=== PATIENT | female | born 1950 | race Caucasian/White ===

== ENCOUNTER → 2016-11-03 | Outpatient (CLI) | payer MEDICARE ==
--- NOTE | 2016-11-03 17:53 | REP ---
Bilateral digital screening mammogram: 11/03/2016 Comparison: 06/04/2015, 08/10/2013, 07/24/2012. Clinical history: Screening examination. She has no current complaint, personal history of breast cancer, but does have a family history of maternal breast cancer. There is a moderate amount of residual fibroglandular tissue remaining which may reduce the sensitivity of mammography. In the right CC view centrally there is an area of subtle increased tissue asymmetry and an increasing small dense nodular appearance centrally and in the inner half of the right breast respectively. It is difficult to clearly define these on the MLO projection. I suspect the more central area of tissue asymmetry is in the upper half of the breast. There are some scattered arterial calcifications in the breast, but no dominant masses, suspicious clusters of microcalcification, other areas of architectural distortion or secondary signs of malignancy. Some skin keratoses are evident. Fat replaced axillary nodes are seen. Impression: BIRADS ACR category 0, incomplete, additional imaging required. The patient should return for spot magnified CC and ML views of the right breast with additional images to be at the discretion of the reviewing radiologist. Ultrasound should be scheduled. There are no other new or significant findings. This mammogram was interpreted with the aid of an FDA-approved computer-aided detection system. The patient states she/he had a clinical breast exam in November 2016. The patient letter being requested is M0. BI-RADS/ACR category 0 mammogram. Incomplete. Additional imaging and/or prior images are needed before a final assessment can be assigned.
== END ==
LOC: M WHC 10:37
PROVIDERS: ATTEND Nurse Practitioner Family
DX: Z01.419 Encounter for gynecological examination (general) (routine) without abnormal findings (principal); Z12.31 Encounter for screening mammogram for malignant neoplasm of breast; R92.8 Other abnormal and inconclusive findings on diagnostic imaging of breast; Z12.12 Encounter for screening for malignant neoplasm of rectum; Z80.3 Family history of malignant neoplasm of breast
CPT/HCPCS: 82270; G0101; G0202

== ENCOUNTER → 2016-11-10 | Outpatient (CLI) | payer MEDICARE ==
--- NOTE | 2016-11-10 12:03 | REP ---
DIAGNOSTIC MAMMOGRAM RIGHT BREAST: Diagnostic mammogram right breast performed. Multiple spot compression views are obtained to evaluate opacities seen on recent mammogram of 11/03/2016. Today's spot compression views show that the densities compress out to an unchanged appearance compared to several prior exams. No persistent suspicious nodule or architectural distortion is seen. IMPRESSION: ACR 2 benign. No persistent nodule or architectural distortion on today's spot compression views of the right breast. Recommend followup mammogram in 1 year. BI-RADS/ACR category 2 mammogram. Benign finding(s). Routine annual screening mammography (for women over age 40). This mammogram was interpreted with the aid of an FDA-approved computer-aided detection system. A. Negative x-ray reports should not delay biopsy if a dominant or clinically suspicious mass is present. B. Four to eight percent of cancers are not identified by x-ray. C. Adenosis and dense breasts may obscure an underlying neoplasm. The patient letter being requested is M1. Signed by Oli Baez MD 11/10/2016 04:56 P
== END ==
LOC: M RAD 11:11
PROVIDERS: ATTEND Nurse Practitioner Family
DX: R92.2 Inconclusive mammogram (principal)

== ENCOUNTER → 2017-11-11 | Outpatient (CLI) | payer MEDICARE | LOC: M WHC 10:34 | DX: Z12.31 Encounter for screening mammogram for malignant neoplasm of breast (principal); Z78.0 Asymptomatic menopausal state; N95.8 Other specified menopausal and perimenopausal disorders; Z80.3 Family history of malignant neoplasm of breast; Z12.4 Encounter for screening for malignant neoplasm of cervix; Z12.12 Encounter for screening for malignant neoplasm of rectum | CPT/HCPCS: 77067; G0123 ==

== ENCOUNTER → 2017-11-11 | Outpatient (REF) | payer MEDICARE | LOC: M SFHCWAGY 11:11 | DX: Z12.4 Encounter for screening for malignant neoplasm of cervix (principal); N95.8 Other specified menopausal and perimenopausal disorders ==

== ENCOUNTER → 2018-12-07 | Outpatient (CLI) | payer MEDICARE ==
--- NOTE | 2018-12-07 12:54 | REP ---
BILATERAL MAMMOGRAM WITH 3D TOMOSYNTHESIS: Family history of breast cancer in mother over age 50 and sister at age 64. [facility] lifetime risk of breast cancer 10.4%. Comparison mammogram 11/11/2017 as well as other prior exams. Mild heterogeneous fibroglandular tissue is again seen bilaterally. There is no change on the right. On the left an oval nodular opacity in the region of 11 o'clock, mid to posterior aspect of the left breast, has slightly increased in size since prior study measuring 6 mm in maximum diameter. Another smaller nodular density more inferiorly and medially, and slightly more posteriorly, measures about 5 mm. Otherwise no new mass or clustered microcalcifications are seen bilaterally. IMPRESSION: BIRADS 0: BI-RADS/ACR category 0 mammogram, Incomplete: Need additional imaging evaluation and/or prior mammograms for comparison. Two subcentimeter nodules in the left breast, one at 11 o'clock and another more medially and inferiorly, more prominent than on prior study. Recommend spot compression views and ultrasound to further evaluate. This mammogram was interpreted with the aid of an FDA-approved computer-aided detection system. The patient states he/she had a clinical breast exam in 12/2018. The patient letter being requested is M0.
== END ==
LOC: M WHC 10:53
PROVIDERS: ATTEND Nurse Practitioner Family
DX: Z12.31 Encounter for screening mammogram for malignant neoplasm of breast (principal); N63.22 Unspecified lump in the left breast, upper inner quadrant; N63.20 Unspecified lump in the left breast, unspecified quadrant

== ENCOUNTER → 2018-12-13 | Outpatient (CLI) | payer MEDICARE ==
--- NOTE | 2018-12-13 14:46 | REP ---
DIAGNOSTIC MAMMOGRAM LEFT BREAST WITH LEFT BREAST ULTRASOUND: Multiple spot compression views of the left breast performed and correlated with a recent mammogram of 12/07/2018, and compared to other prior exams. Spot compression views confirm the presence of a well-circumscribed round nodule medially in the left breast at about the 9 -o'clock position, measuring 4-5 mm in diameter. There is also an oval well circumscribed nodule at about the 11-o'clock position with a maximum diameter 5-6 mm. Real-time sonographic evaluation of the 9-o'clock and 11-o'clock regions of the left breast performed. There are two cysts seen corresponding to the two mammographic subcentimeter nodules. At 9-o'clock, there is a 3 mm cyst and at 11-o'clock, there is an oval cyst measuring 5.3 x 4 mm. The findings are benign. IMPRESSION: BIRADS 2: BI-RADS/ACR category 2 mammogram. Benign Findings. Well circumscribed subcentimeter nodule at 9-o'clock and 11-o'clock positions confirmed by mammographic spot images, correspond to benign cysts by ultrasound. ACR2 benign. Recommend followup mammogram in 1 year. Patient letter requested is M1. Electronically Signed by Oli Baez MD 12/14/2018 09:42 A
== END ==
LOC: M RAD 12:24
PROVIDERS: ATTEND Nurse Practitioner Family
DX: R92.2 Inconclusive mammogram (principal)

== ENCOUNTER → 2020-01-02 | Outpatient (CLI) | payer MEDICARE ==
--- NOTE | 2020-01-02 11:37 | REPMRS ---
Patient History The patient states she had a clinical breast exam in 12/2019. Patient is postmenopausal. Family history of breast cancer at age 50 or over in mother, breast cancer at age 64 in sister. No Hormone Replacement Therapy 3D TOMOSYNTHESIS WAS PERFORMED. [facility]%. Volpara density b. Digital Woman Screen Mammo: January 02, 2020 - Exam #: [id number] Bilateral CC and MLO view(s) were taken. Technologist: Laura Muse, Technologist Prior study comparison: December 13, 2018, left breast digital mammo diagnostic unilateral, performed at [facility]. December 07, 2018, bilateral digital woman screen mammo performed at [facility]. FINDINGS: There are scattered fibroglandular densities. There is a fairly symmetric fibroglandular pattern in both breasts. There has been no interval development of masses, areas of architectural distortion or clusters of microcalcifications typical of malignancy. Tiny cyst is again seen in the medial left breast. Assessment: BI-RADS/ACR category 2 mammogram. Benign Findings. Recommendation Routine screening mammogram of both breasts in 1 year (for women over age 40). This mammogram was interpreted with the aid of an FDA-approved computer-aided dectection system. Electronically Signed By: Oli Baez MD 01/02/20 [id number]
== END ==
LOC: M WHC 10:17
PROVIDERS: ATTEND Nurse Practitioner Family
DX: Z12.31 Encounter for screening mammogram for malignant neoplasm of breast (principal); Z78.0 Asymptomatic menopausal state; Z80.3 Family history of malignant neoplasm of breast

== ENCOUNTER → 2021-02-06 | Outpatient (CLI) | payer MEDICARE ==
--- NOTE | 2021-02-06 15:11 | REPMRS ---
Patient History The patient states she has not had a clinical breast exam in over a year. Patient is postmenopausal. Family history of breast cancer at age 50 or over in mother, breast cancer at age 64 in sister. No Hormone Replacement Therapy Moderna vaccine 05/08/20, 06/07/20 pt unable to remember which arm. 10 lb unintentional weight loss. Patient states no breast complaints today. Patient has signed MRS History Sheet. Digital Woman Screen Mammo: February 06, 2021 - Exam #: [id number] Bilateral CC and MLO view(s) were taken. Technologist: RT Gloria Prior study comparison: January 02, 2020, bilateral digital woman screen mammo performed at [facility] and [facility]. December 13, 2018, left breast digital mammo diagnostic unilateral, performed at [facility]. FINDINGS: There are scattered fibroglandular densities. Screening. Digital screening (2D) mammography was performed bilaterally in the CC and MLO projections. Additionally, breast tomosynthesis (3D mammography) was performed bilaterally in the CC and MLO projections. Todays exam was compared to the prior exam/exams. By history, the patient has no complaints of a palpable breast abnormality or other significant breast complaints. The breasts are unchanged in size and shape. There are no mo-soft tissue densities or spiculated masses. There is no internal architectural distortion. Once again, stable benign appearing calcifications are seen.There are no suspicious mo-calcific clusters. Skin thickening or nipple retraction is not present. IMPRESSION: BI-RADS Category 2- Benign Findings. There is no evidence of malignant alteration of the breasts. Followup examination recommended in one year. The Volpara volumetric breast density category is B, there are scattered areas of fibroglandular densities. This mammogram was read with the assistance of [employer],an FDA approved computer aided detection system for mammography. The lifetime Tyrer-Cuzick score is 9.7 % Negative x-ray reports should not delay surgical consultation if a dominant or clinically suspicious mass is present. Not all breast cancers can be identified by mammography. Therefore, we recommend that you continue to perform regular breast self-examination and physical examination and then promptly contact your physician of any concerns or changes. Adenosis and dense breasts may obscure an underlying neoplasm. Assessment: BI-RADS/ACR category 2 mammogram. Benign Findings. Recommendation Routine screening mammogram of both breasts in 1 year. Electronically Signed By: Kalyan Salas DO 02/06/21 [id number]
== END ==
LOC: M WHC 14:24
DX: Z12.31 Encounter for screening mammogram for malignant neoplasm of breast (principal)

== ENCOUNTER → 2022-09-10 | Outpatient (CLI) | payer MEDICARE | LOC: M WHC 13:31 | PROVIDERS: ATTEND Physician Assistant Medical | DX: Z12.31 Encounter for screening mammogram for malignant neoplasm of breast (principal) ==

== ENCOUNTER 2023-06-30 09:30 | Outpatient (RCR) | payer MEDICARE | END 2023-07-03 | LOC: M PT 09:30 | PROVIDERS: ATTEND Obstetrics & Gynecology | DX: N81.9 Female genital prolapse, unspecified (principal) ==

== ENCOUNTER → 2023-07-15 | Outpatient (CLI) | payer MEDICARE | LOC: M RAD 11:55 | PROVIDERS: ATTEND Physician Assistant Medical | DX: Q61.00 Congenital renal cyst, unspecified (principal) ==

== ENCOUNTER 2023-07-28 09:19 | Outpatient (RCR) | payer MEDICARE | END 2023-08-02 | LOC: M PT 09:19 | PROVIDERS: ATTEND Obstetrics & Gynecology | DX: N81.9 Female genital prolapse, unspecified (principal) ==

== ENCOUNTER → 2023-08-05 | Outpatient (CLI) | payer MEDICARE | LOC: M WHC 10:25 | PROVIDERS: ATTEND Obstetrics & Gynecology | DX: R10.2 Pelvic and perineal pain (principal) ==

== ENCOUNTER 2023-08-23 09:09 | Outpatient (RCR) | payer MEDICARE | END 2023-09-02 | LOC: M PT 09:09 | PROVIDERS: ATTEND Obstetrics & Gynecology | DX: N81.9 Female genital prolapse, unspecified (principal) ==

== ENCOUNTER → 2023-09-16 | Outpatient (CLI) | payer MEDICARE | LOC: M WHC 13:09 | PROVIDERS: ATTEND Physician Assistant Medical | DX: Z12.31 Encounter for screening mammogram for malignant neoplasm of breast (principal) ==

== ENCOUNTER → 2024-11-16 | Outpatient (CLI) | payer MEDICARE | LOC: M WHC 09:43 | PROVIDERS: ATTEND Physician Assistant Medical | DX: Z12.31 Encounter for screening mammogram for malignant neoplasm of breast (principal) ==